=== PATIENT | female | born 1995 | race Caucasian/White ===

== ENCOUNTER 2022-06-21 14:27 | Emergency (ER) | payer OTHER ==
[~2022-06-21] VITALS: Ht 160 cm; Wt 98.0 kg
[2022-06-21 14:31] VITALS: BP 135/84
--- NOTE | 2022-06-21 14:39 | NUR ---
AMBULATED TO BED 11
[2022-06-21] MEDS ORDERED: ACET-10509 PO (14:59)
[2022-06-21] MEDS ORDERED: IBUP-2213 PO (14:59)
--- NOTE | 2022-06-21 14:59 | NUR ---
ASSUMED PATIENT CARE, NURSING ASSESSMENT COMPLETED.
[2022-06-21] MEDS ORDERED: ACETAMINOPHEN EXTRA STRENGTH 500 MG TAB PO ONE (15:00)
[2022-06-21] MEDS ORDERED: METOCLOPRAMIDE 10 MG TAB PO ONE (15:00)
[2022-06-21] MEDS ORDERED: IBUPROFEN 600 MG TAB PO ONE (15:00)
[2022-06-21] MEDS ORDERED: IBUPROFEN 600 MG TAB ONE (16:07)
[2022-06-21] MEDS ORDERED: ACETAMINOPHEN EXTRA STRENGTH 500 MG TAB ONE (16:07)
[2022-06-21] MEDS ORDERED: METOCLOPRAMIDE 10 MG TAB ONE (16:08)
[2022-06-21 16:12] VITALS: BP 111/65
--- NOTE | 2022-06-21 16:13 | NUR ---
Patient discharged with v/s stable. Written and verbal after care instructions given and explained. Patient alert, oriented and verbalized understanding of instructions. Ambulatory with steady gait. All questions addressed prior to discharge. ID band removed. Patient advised to follow up with PMD. Rx of TYLENOL, IBUPROFEN given. Patient educated on indication of medication including possible reaction and side effects. Opportunity to ask questions provided and answered.
== END 2022-06-21 16:13 | disposition home or self-care (01) ==
LOC: MED 14:27
DX: S16.1XXA Strain of muscle, fascia and tendon at neck level, initial encounter (principal); F07.81 Postconcussional syndrome; Z79.899 Other long term (current) drug therapy; V49.88XA Car occupant (driver) (passenger) injured in other specified transport accidents, initial encounter; Y93.89 Activity, other specified; Y92.89 Other specified places as the place of occurrence of the external cause; Y99.8 Other external cause status
CPT/HCPCS: 70450; 99284; J8597